=== PATIENT | female | born 1970 | race Caucasian/White ===

== ENCOUNTER → 2019-12-30 | Outpatient (CLI) | payer BC, SELFPAY ==
[2019-12-24 13:56] VITALS: BMI 24.1
[2019-12-30 10:37] VITALS: BMI 23.9
[2019-12-30 12:52] VITALS: PULSE 100; PULSE 102; PULSE 80; PULSE 86; PULSE 94; PULSE 98; O2SAT 93; O2SAT 95; O2SAT 96; O2SAT 97; O2SAT 98; O2SAT 99
--- NOTE | 2019-12-31 09:51 | PCM.PSN.6M ---
PSN 6 Minute Walk Test - 6 Minute Walk Test 6 Minute Walk Test: 6 Minute Walk Test PSN:6-Minute Walk Test Start: 12/30/19 12:51 Freq: Status: Active Protocol: RESP.6MINW Document 12/30/19 12:52 [facility] (Rec: 12/30/19 12:54 DULCE [id number]) 6 Minute Walk Test Date Performed 12/30/19 Time Performed 12:30 Height 5 ft 5 in Weight: 144 lb Weight in Pounds 144.[address]: Alexandru Shepherd Assistive device used: None Pre-test Oxygen Delivery Method Room Air Pulse Ox (%) 98 Pulse Rate (60-100 beats/min) 80 Dyspnea Asya Scale (0-10) 0.5 Exertion Asya Scale (6-20) 6 1st minute Oxygen Delivery Method Room Air Pulse Ox (%) 99 Pulse Rate (60-100 beats/min) 94 2nd minute Oxygen Delivery Method Room Air Pulse Ox (%) 98 Pulse Rate (60-100 beats/min) 98 3rd minute Oxygen Delivery Method Room Air Pulse Ox (%) 95 Pulse Rate (60-100 beats/min) 102 H 4th minute Oxygen Delivery Method Room Air Pulse Ox (%) 97 Pulse Rate (60-100 beats/min) 100 5th minute Oxygen Delivery Method Room Air Pulse Ox (%) 96 Pulse Rate (60-100 beats/min) 98 6th minute Oxygen Delivery Method Room Air Pulse Ox (%) 93 Pulse Rate (60-100 beats/min) 98 Dyspnea Asya Scale (0-10) 2 Exertion Asya Scale (6-20) 13 Post-test Oxygen Delivery Method Room Air Pulse Ox (%) 98 Pulse Rate (60-100 beats/min) 86 Full Laps Walked 20 Partial Lap, Number of Tiles Walked 0 Total Distance Walked (ft) 1180 - Interpretation Interpretation: The patient ambulated 1180 feet over the course of 6 minutes beginning on room air without assistive devices or breaks. Pretesting oxygen saturation was noted to be 98% on room air. With ambulation, the [place] oxygen saturation was 93%. This represents a significant exertional oxygen desaturation. - Recommendations Recommendations: There is no indication for the use of supplemental oxygen at this time. However, close interval follow-up is recommended, given the degree of oxygen desaturation noted during this study.
== END | disposition home or self-care (01) ==
PROVIDERS: PCP Internal Medicine; Referring Provider Internal Medicine Critical Care Medicine; Visit Provider Internal Medicine Critical Care Medicine
DX: J44.9 Chronic obstructive pulmonary disease, unspecified (principal)
CPT/HCPCS: 94618

== ENCOUNTER → 2020-01-03 | Outpatient (CLI) | payer BC, SELFPAY ==
[2019-12-30 10:37] VITALS: BMI 23.9
--- NOTE | 2020-01-03 13:48 | BI_ITS ---
MAMMOGRAPHY - BILATERAL SCREENING REASON FOR EXAM: Female, 49 years old. Routine annual screening examination. PERTINENT HISTORY: Personal history of breast cancer. Prior left lumpectomy. TECHNIQUE: Digital bilateral breast simin (3D mammographic acquisition) in the CC and MLO projections. 2-D mediolateral oblique (MLO) and craniocaudad (CC) views of both breasts were obtained. CAD: Full Field Digital Mammography with Computer Added Detection was performed. COMPARISON: Comparison is made with prior outside examination dated September 09, 2015. FINDINGS: Breast Composition: The breasts are heterogeneously dense, which may obscure small masses. There are no dominant masses or suspicious calcifications. Stable mild degree of architectural distortion in the deep upper lateral portion of the left breast representing post left lumpectomy findings. No other significant abnormalities are identified. There has been no significant change since the prior study. BI/SCREEN MAMM (CAD) W/SIMIN BILAT IMPRESSION: Stable bilateral screening mammogram. Yearly follow-up mammogram recommended. (A) ASSESSMENT CATEGORY: BIRADS Category 2: Benign. A letter regarding these results will be sent to the patient by the facility within 30 days. Approximately 10% of breast cancers are not detected by mammography. A normal mammogram should not delay biopsy of a clinically suspicious abnormality. [id number] Electronically Signed: Jaswinder Reyes, at 15:00 EDT , Service support ,
== END | disposition home or self-care (01) ==
LOC: OPBI 13:48
PROVIDERS: PCP Internal Medicine; Referring Provider Internal Medicine Hematology & Oncology; Visit Provider Internal Medicine Hematology & Oncology
DX: Z12.31 Encounter for screening mammogram for malignant neoplasm of breast (principal)
CPT/HCPCS: 77063; 77067

== ENCOUNTER 2020-09-28 14:50 | Emergency (ER) | payer BC, SELFPAY ==
[2020-09-15 12:19] VITALS: BMI 27.6
[2020-09-28 14:52] VITALS: BP 149/99; PULSE 91; RESP 18; TEMP 36.3; O2SAT 94; BMI 26.6
--- NOTE | 2020-09-28 15:16 | EKG12_ITS ---
Test Reason : Blood Pressure : / mmHG Vent. Rate : 071 BPM Atrial Rate : 071 BPM P-R Int : 182 ms QRS Dur : 096 ms QT Int : 404 ms P-R-T Axes : 086 083 081 degrees QTc Int : 439 ms Somatic/Motion Artifact Normal sinus rhythm \ Confirmed by ABDOUL YANEZ, MARILYNN ([id number]), material expeditor ESA BAXTER ([id number]) on 09/29/2020 10:47:52 AM Referred By: MARY Confirmed By:MARILYNN SCHREIBER MD
--- NOTE | 2020-09-28 15:19 | ED.VISSUMM ---
- ER Visit Summary Date of Service: 09/28/20 Chief Complaint: Myalgias History of Present Illness: The patient is a 50 F presenting with myalgias, not feeling well. Patient states this started on Monday. She states she started having congestion, sneezing, fatigue. Yesterday she lost her sense of taste and smell. She was tested for Covid yesterday and was positive. She has a history of end-stage COPD and discussed her symptoms with Dr. Shepherd. She states she was told she does not qualify for monoclonal antibody treatment. Her pulse ox has been in the mid 90s. She has home O2 available that she wears at night. She has shortness of breath which is chronic and no worse than usual. Physical Examination: Vitals are stable. Patient is afebrile. Alert no acute distress. HEENT exam is unremarkable. Neck is supple. Lungs are wheezing bilaterally. Heart is regular rate and rhythm. Abdomen is soft nontender nondistended. Extremities are unremarkable. Skin is warm and dry. No focal neurologic deficit. Remainder of exam is unremarkable. Emergency Department Course and Treatment: Patient was given albuterol, Atrovent aerosols. She was given IV fluids, Toradol. Chest x-ray shows emphysema without pneumonia or atelectasis. EKG is sinus rhythm rate of 71 with no acute ischemic changes. CBC shows white count 4.1. Chemistries unremarkable. Troponin is negative. D-dimer is normal. Patient is resting comfortably on reevaluation. With ambulation her pulse ox is 90% on room air. It does return to 94 to 95% on room air quickly when she sits down. She would prefer discharge home. Discussed with Dr. Garcia. Patient will be started on Decadron. She will follow-up closely with their office. She is advised signs and symptoms for which to return to the ED. She is comfortable with this plan. Disposition: Discharge home Impression: COVID-19 This note was generated with [employer] dictation software. It may contain incorrect words, spelling, and punctuation that were not noted in review of the chart prior to signing ED Disposition - Plan for ED Patient: Instructions: Coronavirus Disease 2019 (COVID-19): Overview Prescriptions: Dexamethasone [Decadron] 6 mg PO DAILY #9 tab Prescription Printed Referrals: Alexandru Shepherd DO [STAFF PHYSICIAN] - Haylie Ayon DO [Primary Care Provider] -
--- NOTE | 2020-09-28 15:26 | NURSING ---
NO OLD EKGS
[2020-09-28 15:43] VITALS: PULSE 88; RESP 20
[2020-09-28] MEDS: Ipratropium/Albuterol Sulfate 3 ML AMPUL.NEB INHALATION (15:43)
[2020-09-28] MEDS: Albuterol 2.5 MG/3 ML VIAL.NEB. INHALATION ×3 (15:43)
[2020-09-28 16:04] LABS: Absolute Lymphocyte Count 1.58 X10^3/uL (0.83-4.51); Absolute Neutrophil Count 2.2 X10^3/uL (2.0-7.7); Basophil# 0.01 X10^3/uL; Basophil% 0.2 % (0-1); Eosinophil# 0.04 X10^3/uL; Hematocrit 43.9 % (37-47); Hemoglobin 14.8 g/dL (12.0-15.0); Lymphocyte # 1.58 X10^3/ul (4.0); Lymphocyte % 38.3 % (19-41); Mean Corp Hgb Conc 33.7 g/dL (32-36); Mean Corpuscular Hgb 34.2 pg (27.0-32.0); Mean Corpuscular Volume 101.4 fL (81-99); Mean Platelet Vol. 9.4 fl (6.2-12.0); Monocyte# 0.31 X10^3/uL; Monocyte% 7.5 % (0-10); NRBC Flagged by Analyzer 0 % (0-5); Neutrophil # 2.18 X10^3/uL (2.7-7.7); Platelet Count 165 K/mm3 (150-450); RBC Distribution Width CV 14.5 % (11.6-14.6); RBC Distribution Width SD 50.3 fl (35.1-43.9); Red Blood Count 4.33 M/mm3 (4.2-5.4); White Blood Count 4.1 K/mm3 (4.4-11.0)
[2020-09-28] MEDS: 0.9% Normal Saline 1,000 ML 1000 ML IV (16:04)
[2020-09-28] MEDS: Ketorolac 15 MG/ML Vial IV (16:05)
[2020-09-28 16:14] LABS: D-Dimer Quantitative (DVT/PE) 0.29 FEU/ug/m (0.27-0.49)
[2020-09-28 16:18] VITALS: O2SAT 95
[2020-09-28 16:21] LABS: AST(SGOT) 38 U/L (15-37); Alanine Aminotransfer ALT/SGPT 34 U/L (13-56); Albumin, Serum 3.8 g/dL (3.2-5.0); Alkaline Phosphatase 60 U/L (45-117); Anion Gap 6 (5-15); BUN 10 mg/dL (7-18); BUN/Creat Ratio 15.8 RATIO (10-20); Calcium,Total 8.6 mg/dL (8.5-10.1); Chloride 108 mmol/L (98-107); Creatinine, Serum 0.63 mg/dL (0.55-1.02); EST Glomerular Filtration Rate 106 mL/min (>60); Est Glom Filt Rate - Afr Amer 128 mL/min (>60); Estimated Creatinine Clearance 96.13 ml/min; Globulin 3.8 g/dL (2.2-4.2); Glucose 76 mg/dL (74-106); Potassium 3.9 mmol/L (3.5-5.1); Protein, Total 7.6 g/dL (6.4-8.2); Sodium Level 141 mmol/L (136-145)
--- NOTE | 2020-09-28 16:25 | RAD_ITS ---
STUDY: X-RAY CHEST REASON FOR EXAM: Female, 50 years old. cough TECHNIQUE: Single AP portable view of the chest. COMPARISON: 11/11/2019 FINDINGS: There is hyperinflation of the lungs consistent with chronic obstructive lung disease (COPD). There is no demonstrated pleural abnormality. Normal size heart. Normal mediastinum and andrew. Normal visualized pulmonary arteries. Normal visualized aortic arch and descending thoracic aorta. Normal visualized thoracic spine. Normal visualized ribs, clavicles, and shoulders. There is no demonstrated abnormality of the visualized soft tissue structures of the upper abdomen. RAD/Chest 1 View (Portable) IMPRESSION: Emphysema without pneumonia or atelectasis. Electronically Signed: Tanvir Jean MD at 16:44 EST Tel , Service support ,
[2020-09-28 17:02] VITALS: PULSE 105; RESP 18; O2SAT 98
[2020-09-28 17:04] VITALS: O2SAT 96
--- NOTE | 2020-09-28 17:55 | ED.DEP ---
ED Disposition - Plan for ED Patient: Instructions: Coronavirus Disease 2019 (COVID-19): Overview Prescriptions: Dexamethasone [Decadron] 6 mg PO DAILY #9 tab Prescription Printed Referrals: Haylie Ayon DO [Primary Care Provider] - Alexandru Shepherd DO [STAFF PHYSICIAN] -
[2020-09-28 18:15] VITALS: BP 125/81; PULSE 88; RESP 18; O2SAT 96
[2020-09-28] MEDS: dexAMETHasone 4 MG Tablet 6 MG PO (18:15)
== END 2020-09-28 18:27 | disposition home or self-care (01) ==
LOC: ED 15:48
PROVIDERS: Emergency Provider Emergency Medicine; PCP Internal Medicine
DX: U07.1 COVID-19 (principal); J44.9 Chronic obstructive pulmonary disease, unspecified; Z79.51 Long term (current) use of inhaled steroids
CPT/HCPCS: 71045; 80053; 84484; 85025; 85379; 93005; 94640; 96361; 96374; 99285; J7030; A4216

== ENCOUNTER → 2020-11-12 13:37 | Outpatient (CLI) | payer BC, SELFPAY ==
[2020-09-15 12:19] VITALS: BMI 27.6
[2020-11-12 14:03] VITALS: PULSE 102; PULSE 111; PULSE 114; PULSE 115; PULSE 116; PULSE 94; PULSE 95; PULSE 98; O2SAT 90; O2SAT 91; O2SAT 92; O2SAT 96; O2SAT 97
--- NOTE | 2020-11-13 13:53 | PCM.PSN.6M ---
PSN 6 Minute Walk Test - 6 Minute Walk Test 6 Minute Walk Test: 6 Minute Walk Test PSN:6-Minute Walk Test Start: 11/12/20 14:03 Freq: Status: Active Protocol: RESP.6MINW Document 11/12/20 14:03 [facility] (Rec: 11/12/20 14:06 [facility] [id number]) 6 Minute Walk Test Date Performed 11/12/20 Time Performed 13:45 Height 5 ft 5 in Weight: 72.575 kg Weight in Pounds 160.[address]: Dr Shepherd Assistive device used: None Pre-test Oxygen Delivery Method Room Air Pulse Ox (%) 97 Pulse Rate (60-100 beats/min) 94 Dyspnea Asya Scale (0-10) 1 Exertion Asya Scale (6-20) 6 1st minute Oxygen Delivery Method Room Air Pulse Ox (%) 96 Pulse Rate (60-100 beats/min) 95 2nd minute Oxygen Delivery Method Room Air Pulse Ox (%) 92 Pulse Rate (60-100 beats/min) 102 H 3rd minute Oxygen Delivery Method Room Air Pulse Ox (%) 91 Pulse Rate (60-100 beats/min) 111 H 4th minute Oxygen Delivery Method Room Air Pulse Ox (%) 90 Pulse Rate (60-100 beats/min) 114 H 5th minute Oxygen Delivery Method Room Air Pulse Ox (%) 90 Pulse Rate (60-100 beats/min) 115 H 6th minute Oxygen Delivery Method Room Air Pulse Ox (%) 91 Pulse Rate (60-100 beats/min) 116 H Dyspnea Asya Scale (0-10) 3 Exertion Asya Scale (6-20) 12 Post-test Oxygen Delivery Method Room Air Pulse Ox (%) 97 Pulse Rate (60-100 beats/min) 98 Full Laps Walked 19 Partial Lap, Number of Tiles Walked 36 Total Distance Walked (ft) 1157 - Interpretation Interpretation: The patient was noted to be 97% on room air, but did desaturate as low as 90% with ambulation. Patient did have a peak heart rate of 116 bpm. In total, the patient was able to travel 1157 feet over the course of 6 minutes on room air with no assistive device or breaks. These findings are consistent with a respiratory limitation exercise tolerance. - Recommendations Recommendations: No supplemental oxygen is indicated at this time. However, patient will need to be followed closely given level of desaturation.
== END ==
PROVIDERS: PCP Internal Medicine; Referring Provider Internal Medicine Critical Care Medicine; Visit Provider Internal Medicine Critical Care Medicine
DX: J44.9 Chronic obstructive pulmonary disease, unspecified (principal)
CPT/HCPCS: 94618

== ENCOUNTER → 2021-01-04 10:21 | Outpatient (CLI) | payer MEDICAID, SELFPAY ==
--- NOTE | 2021-01-04 10:24 | BI_ITS ---
MAMMOGRAPHY - BILATERAL SCREENING REASON FOR EXAM: Female, 50 years old. Routine annual screening examination. PERTINENT HISTORY: Personal history of breast cancer. Prior left lumpectomy with radiation treatment. TECHNIQUE: Digital bilateral breast simin (3D mammographic acquisition) in the CC and MLO projections. 2-D mediolateral oblique (MLO) and craniocaudad (CC) views of both breasts were obtained. CAD: Full Field Digital Mammography with Computer Added Detection was performed. COMPARISON: Comparison is made with prior examination dated 01/03/2020. FINDINGS: Breast Composition: The breasts are heterogeneously dense, which may obscure small masses. There are no dominant masses or suspicious calcifications. Stable mild degree of architectural distortion in the deep upper lateral portion of the left breast in keeping with the patient''s history of prior left lumpectomy and radiation. No other significant abnormalities are identified. There has been no significant change since the prior study. BI/SCRN MAMM (CAD)W/SIMIN BILAT IMPRESSION: Stable bilateral screening mammogram. Yearly follow-up mammogram recommended. (A) ASSESSMENT CATEGORY: BIRADS Category 2: Benign. A letter regarding these results will be sent to the patient by the facility within 30 days. Approximately 10% of breast cancers are not detected by mammography. A normal mammogram should not delay biopsy of a clinically suspicious abnormality. [id number] Electronically Signed: Jaswinder Reyes MD at 11:13 EDT , Service support ,
== END ==
PROVIDERS: PCP Internal Medicine; Referring Provider Internal Medicine Hematology & Oncology; Visit Provider Internal Medicine Hematology & Oncology
DX: Z12.31 Encounter for screening mammogram for malignant neoplasm of breast (principal)
CPT/HCPCS: 77063; 77067

== ENCOUNTER 2021-08-11 10:06 | Outpatient (CLI) | payer MEDICAID, SELFPAY ==
--- NOTE | 2021-08-11 10:30 | PET_ITS ---
EXAMINATION: FDG PET-CT INDICATIONS: A 51-year-old female with reported history of pulmonary nodularity. COMPARISON EXAMINATION: None available INDEX LESION SIZE SUV INTERPRETATION Right lower lung-right lower lobe (nR6) 28.6-mm (largest) (frame 160) 9.7 (max) Fulfills quantitative criteria for viable neoplasm Subcarinal anterior mediastinum (nR3) 17.5-mm (largest) (frame 187) 14.1 (max) Fulfills quantitative criteria for viable neoplasm TECHNIQUE: Following the intravenous administration of 11.89 mCi of F-18 deoxyglucose via the right antecubital fossa, multiplanar image acquisitions of the neck, chest, abdomen and pelvis to level of mid thigh, obtained at one hour post radiopharmaceutical administration contemporaneously interpreted with the current CT of the neck, chest, abdomen and pelvis, to level of mid thigh, dated 08/11/21 via coregistration reveals: BLOOD GLUCOSE LEVEL:?? 92 mg/dl?HEIGHT:?65 inches?WEIGHT: 159 lbs. FINDINGS: 1. Several nodular foci of increased FDG concentration are manifest in the right lower lung-right lower lobe corresponding to partially calcified densities defined on CT of the chest dated 08/11/21. The calculated maximal standard uptake value is 9.7. The maximal axial diameter of the largest corresponding parenchymal density on review of CT of the chest dated 08/11/21 is 28.6-mm localized to the right lower post-basilar lung-right lower lobe. 2. Enhanced labeled tracer is defined in the subcarinal anterior mediastinum in several individual nodular presentations associated with partially calcified soft tissue. The calculated maximal standard uptake value is 14.1. The maximal axial diameter of the corresponding largest metabolic, morphologic abnormality on review of CT of the chest dated 08/11/21 is 17.5-mm (transverse). 3. Normal physiologic distribution of the radiopharmaceutical is apparent in the hepatic (3.2) and splenic parenchyma, both renal units, bladder and visualized intestinal tract. Prominent radiopharmaceutical concentration is defined in the anterior neck, laryngeal structures associated with the arytenoid cartilage and cricopharyngeus musculature without evidence of soft tissue thickening most consistent with physiologic radiotracer uptake. The visualized portion of the cerebral cortical-subcortical structures demonstrate symmetric and preserved glucose metabolism. Diffuse radiopharmaceutical concentration is noted in all four quadrants of the abdomen and pelvis. There is pooling of the radiopharmaceutical noted in the distribution of the urethra. Pertinent CT findings are as follows: CHEST: Significant emphysematous changes are encountered in the bilateral upper-lower lung zones with multiple bulla visualized. There is atherosclerotic calcification defined in the thoracic aorta without evidence of dilatation-aneurysm formation. Bilateral axillary soft tissue densities with fatty hilus are ametabolic. ABDOMEN AND PELVIS: The gallbladder is surgically absent. There is atherosclerotic calcification defined in the abdominal aorta without evidence of dilatation-aneurysm formation. Pelvic arterial calcification is defined. Calcification is manifest in the lower pelvis associated with the uterus without evidence of increased tracer uptake. Cyst formation is noted in the region of the right adnexa without evidence of facilitated uptake. SKELETAL: Degenerative changes are noted in the cervical, thoracic and lumbar spine without evidence of increased radiopharmaceutical concentration. PET/PET/CT Tumor Base -Thigh Init IMPRESSION: 1. ABNORMAL EXAMINATION INDICATIVE OF MALIGNANT VIABLE NEOPLASM. 2. Increased glucose concentration multifocally apparent in the right lung-right lower lobe fulfill quantitative criteria for malignant transformation. Histopathologic analysis is recommended. (Hamilton et al, Annals of Internal Medicine, 138:724, 2003). 3. Subcarinal anterior mediastinal hypermetabolic foci fulfill quantitative criteria for malignant transformation. (Khurram et al, Journal of Clinical Oncology 16:2142, 1998). Electronic Signature Tanvir Melgar D.O. Accurate Quantification of SUVs for this report are calculated using the exclusive [employer]. (U.S. Patent No. 10, 674, 983). Standardization and correction of the FDG SUV metric via [employer] technology allow for vendor non-specific objective quantitative examination comparison and optimization of the sensitivity and specificity of the FDG PET-CT examination. Electronically Signed: Tanvir Melgar DO at 7:44 EST Tel , Service support ,
== END 2021-08-11 23:59 | disposition home or self-care (01) ==
LOC: ONC 10:07
PROVIDERS: PCP Internal Medicine; Referring Provider Internal Medicine Critical Care Medicine; Visit Provider Internal Medicine Critical Care Medicine
DX: R91.1 Solitary pulmonary nodule (principal)
CPT/HCPCS: 78815; A9552

== ENCOUNTER 2021-08-18 10:49 | Outpatient (CLI) | payer MEDICAID, SELFPAY ==
[2021-08-18 11:14] LABS: Platelet Count 261 K/mm3 (150-450)
[2021-08-18 11:23] LABS: International Normalized Ratio 0.9; Prothrombin Time (Protime)PT. 11.9 SECONDS (11.7-14.9)
== END 2021-08-18 23:59 | disposition short-term general hospital (02) ==
LOC: PAVLAB 10:50
PROVIDERS: PCP Internal Medicine; Referring Provider Internal Medicine Critical Care Medicine; Visit Provider Internal Medicine Critical Care Medicine
DX: R91.1 Solitary pulmonary nodule (principal)
CPT/HCPCS: 36415; 85049; 85610

== ENCOUNTER 2021-08-19 08:01 | Outpatient (CLI) | payer MEDICAID, SELFPAY ==
--- NOTE | 2021-08-18 | ASPIGT_PTH ---
PATIENT: FERNANDO LANDRY LOC: CT U#:[id number] AGE/SX: 51/F ROOM: RE08/19/[address]: Dr. Alexandru Shepherd DO : 1970 BED: DIS: 08/19/2021 SPEC #: [id number] RECD: 08/19/21 12:35 STATUS: OSCAR REMorteza #: [id number] DREW: 08/18/21 00:[address]: Alexandru Shepherd DEPT: SURGICAL PATHOLOGY RECD BY: Casey Gomez ENTERED: 08/19/21 12:35 SP TYPE: ASP RAD OTHR DR: Dr. Haylie Ayon DO Tissues: Lung, NOS Procedures: FNA Specimen Adequacy Special Stain Group II Special Stain Group I Surgery Specimen Level IV AFB Stain (control) GMS Stain (control) Imprint (control) HEADER OPERATION: CT-guided biopsy, right lower lobe lung PRE-OP DIAGNOSIS: Lung nodule, abnormal PET TISSUE SUBMITTED: Right lower lobe lung 20-gauge core x4 MICROSCOPIC DIAGNOSIS Right lower lobe lung, CT-guided core biopsy: Fragments of dense fibroconnective tissue with extensive foreign body giant cell reaction. Focal area of granuloma formation. Negative for malignancy. See comment. SJ:jimi 08/20/2021 COMMENT The specimen is evaluated at the time of biopsy by Dr. Bailey. Immediate Evaluation = Negative for malignant cells. Giant cells are noted. Numerous refractile polarizable material are noted in the giant cells. Scant amount of lung parenchymal tissue is noted with reactive changes and chronic inflammation. Correlation with clinical, radiologic findings and appropriate follow up are necessary. Special stains for acid fast bacilli and fungi are negative for organisms; matched controls are appropriate. Case has been reviewed in consultation with Dr. Rosa who concurs with the above diagnosis. IDC:AM MICROSCOPIC DESCRIPTION Slides are reviewed. GROSS DESCRIPTION Received in fixative is one container labeled with the patient's name and designated right lower lobe, CT-guided core biopsy. The specimen consists of multiple irregular fragments of miranda soft tissue that in aggregate measure 1 x 0.1 x 0.1 cm. The specimen is totally submitted in one cassette. Two touch imprints are prepared at the time of core biopsy. / SJ:rg 08/19/2021 :5 [facility]: [id number], [id number], [id number] x2 ADDENDUM ADDENDUM ADDENDUM ADDENDUM ADDENDUM ADDENDUM ADDENDUM ADDENDUM ADDENDUM ADDENDUM ADDENDUM 07/12/2023 10:01 ADDENDUM 07/12/2023 10:01 ADDENDUM 07/12/2023 10:01 ADDENDUM 07/12/2023 10:01 ADDENDUM 07/12/2023 10:01 This addendum is added to incorporate an outside pathology consultation report. The case was examined at [facility] (#[id number]) and the following diagnosis was rendered. Right lower lobe lung, CT-guided core biopsy: Cores of benign hyalinized fibrous tissue with talc granulomas. History of pleurodesis for pneumothorax. Please see complete above mentioned consultation report in EMR
[2021-08-19] VITALS (12 sets, daily range): BP systolic 103–128; BP diastolic 59–84; PULSE 63–96; RESP 13–24; TEMP 36.2; O2SAT 94–100; BMI 26.9
--- NOTE | 2021-08-19 08:03 | CT_ITS ---
PROCEDURE: CT GUIDED CORE NEEDLE BIOPSY OF A right lower lobe LUNG LESION INDICATION: Female, 51 years old. PET + Lung Nodule PHYSICIAN: Dr. PATSY Orr CONSENT: Written informed consent was obtained having explained the risks, benefits and alternatives in detail with the patient who accepted the risks and agreed to proceed. Laboratory review and clinical assessment was performed. CONSCIOUS SEDATION PROTOCOL: The Drugs used were: 2 mg Versed, IV., and 50 mcg Fentanyl, IV. The sedation time was: 23 minutes. Conscious sedation was started at 9:00 AM and terminated at 923 The conscious sedation protocol was independently monitored. RADIATION DOSAGE (If Supplied By Facility): CTDIvol = ( 22 ) mGy, DLP = ( 280.1 ) mGycm Individualized dose optimization techniques were used for this CT. TECHNIQUE: The patient was placed in the prone position. A noncontrast CT was performed to localize the lesion in the posterior medial segment of the right lower lobe . The skin surface was prepped and draped in a sterile fashion. 1% lidocaine was used for local anesthesia. Using CT guidance, a 20-gauge coaxial biopsy device was advanced to the periphery of the lesion. A total of 4 core specimens were obtained. The specimens were placed in a formalin solution. A post procedure CT demonstrated no adverse sequelae or pneumothorax. The patient tolerated the procedure well without adverse event. A negative biopsy does not exclude malignancy. Further imaging or clinical followup based on patient condition and degree of clinical suspicion for malignancy. Suggest rebiopsy, if biopsy results do not match with clinical scenario. CT/Biopsy/Inj or Needle Placement IMPRESSION: 1. CT directed core needle biopsy of the nodule in the posterior segment of the right lower lobe using CT image guidance with image documentation as described. Pathology results are pending. 2. Conscious Sedation protocol utilized with independent monitoring. Electronically Signed: Jaswinder Reyes MD at 9:58 EST , Service support ,
[2021-08-19] MEDS: Midazolam 2 MG/2 ML Syringe IV (09:00)
[2021-08-19] MEDS: fentaNYL 100 MCG/2 ML Ampul IV (09:03)
[2021-08-19] MEDS: Lidocaine 2% (20 ml mdv) 20 ML Vial INFILT (09:10)
--- NOTE | 2021-08-19 09:30 | RAD_ITS ---
STUDY: X-RAY CHEST REASON FOR EXAM: Female, 51 years old. Immediately post lung biopsy -- Immediately post lung biopsy TECHNIQUE: AP inspiration and expiration views COMPARISON: Comparison is made with prior study 09/28/2020. FINDINGS: EKG electrodes are seen. There is no evidence of pneumothorax on the immediate post right lung biopsy radiographs. RAD/Chest Insp/Exp 2 View IMPRESSION: No evidence of pneumothorax on the immediate post right lung biopsy radiographs. Electronically Signed: Jaswinder Reyes MD at 9:55 EST , Service support ,
--- NOTE | 2021-08-19 11:15 | RAD_ITS ---
STUDY: X-RAY CHEST REASON FOR EXAM: Female, 51 years old. 2 hours post lung biopsy -- 2 hours post lung biopsy TECHNIQUE: AP inspiration and expiration views. COMPARISON: Comparison is made with prior study done earlier in the day. FINDINGS: No evidence of pneumothorax on the 2 hour post right lung biopsy radiographs. RAD/Chest Insp/Exp 2 View IMPRESSION: No evidence of pneumothorax on the 2 hour post right lung biopsy radiographs. Electronically Signed: Jaswinder Reyes MD at 13:01 EST , Service support ,
== END 2021-08-19 23:59 | disposition home or self-care (01) ==
LOC: CT 08:02
PROVIDERS: PCP Internal Medicine; Referring Provider Internal Medicine Critical Care Medicine; Visit Provider Internal Medicine Critical Care Medicine
DX: R91.1 Solitary pulmonary nodule (principal); J44.9 Chronic obstructive pulmonary disease, unspecified; Z85.3 Personal history of malignant neoplasm of breast; Z87.442 Personal history of urinary calculi; Z85.07 Personal history of malignant neoplasm of pancreas; Z87.891 Personal history of nicotine dependence
CPT/HCPCS: 32408; 77012; 71046; 88172; 88305; 88312; 88313; 99156; J7040; A4216; C2613

== ENCOUNTER → 2021-11-23 | Outpatient (CLI) | payer MEDICAID, SELFPAY ==
--- NOTE | 2021-11-23 13:25 | CT_ITS ---
STUDY: CT CHEST REASON FOR EXAM: Female, 51 years old. Follow known nodules RADIATION DOSAGE (If Supplied By Facility): CTDIvol = ( 9.40 ) mGy, DLP = ( 216.64 ) mGycm TECHNIQUE: The examination was performed with the intravenous administration of IV 100mL [id number]-300. Post-processing of the angiographic images was performed, with multiplanar reformation and 3D reconstruction. Individualized dose optimization techniques were used for this CT. COMPARISON: None. FINDINGS: Small bilateral axillary lymph nodes. Normal thoracic aorta and visualized great vessels. There is no demonstrated aortic dissection. Normal heart and pericardium. Calcified nodule in the anterior mediastinum. Calcified subcarinal lymph nodes. Normal hilar regions. Normal visualized trachea and bronchi. The lungs are hyper expanded, with flattening of the hemidiaphragms. Diffuse emphysematous changes with multiple bullous changes seen in both lungs. There is a 9.2 mm x 18.9 mm pleural-based nodular density in the posterior medial segment of the right lower lobe. This most likely represents round atelectasis. Patchy calcific densities are seen within this nodular density. There are 2 adjacent subcentimeter noncalcified nodules in the peripheral lateral aspect of the right lower lobe. Normal pleura. Normal chest wall structures. There are degenerative changes of thoracic spine. Normal visualized upper abdomen. CT/Chest WITH Contrast IMPRESSION: Calcified anterior mediastinal lymph nodes as well as subcarinal lymph nodes. Diffuse hyperinflation and emphysematous changes. Findings suggestive of a round atelectasis in the posterior medial segment of the right lower lobe. Electronically Signed: Jaswinder Reyes MD at 13:43 EDT ,
== END | disposition home or self-care (01) ==
LOC: CT 13:22
PROVIDERS: PCP Internal Medicine; Visit Provider Nurse Practitioner Acute Care
DX: R91.1 Solitary pulmonary nodule (principal)
CPT/HCPCS: 71260; Q9967; A4216

== ENCOUNTER → 2022-02-24 | Outpatient (CLI) | payer MEDICAID, SELFPAY ==
--- NOTE | 2022-02-24 14:52 | CT_ITS ---
INDICATION: Lung Nodule EXAMINATION: CT CHEST WITHOUT CONTRAST - CT Chest W/O Contrast Injection TECHNIQUE: Helically acquired images were obtained of the chest. A radiation dose optimization technique was used for this scan. IV Contrast dosage and agent: None. COMPARISON: 11/23/2021 CT chest, 08/11/2021 PET/CT FINDINGS: LUNGS, PLEURA AND LARGE AIRWAYS: No consolidation, or edema. No pleural effusion or thickening. No pneumothorax. Extensive emphysematous COPD changes and bullous changes throughout the bilateral lungs is present. There is a similar fibrotic calcified change along the right lower lobe posterior pleura measuring 2.1 cm in similar in comparison to the previous one 1222 exam. There is a calcified right lower mediastinal nodule measuring 1.5 cm with the more superior irregular partially calcified additional nodule measuring 2.5 x 1.8 cm in similar compared to the 11/23/2021 exam. Small stable pleural nodule within the posterior aspect of the right lower lobe is also noted measuring 9 mm at the base. THYROID: No thyroid lesions. HEART AND PERICARDIUM: Heart size is normal. No pericardial effusion. CORONARY ARTERIES: Coronary artery calcification VESSELS: Thoracic aorta is not dilated. MEDIASTINUM AND BHUPINDER: No mediastinal or hilar adenopathy. Esophagus is unremarkable. No hiatal hernia. UPPER ABDOMEN: No acute pathology. BONES: No suspicious lytic or blastic abnormality. CT/Chest without Contrast IMPRESSION: 1. Extensive similar COPD and bullous changes of the bilateral lungs. 2. Similar-appearing pleural-based irregular nodules in the right lower lobe which demonstrated increased metabolic activity on recent PET/CT on 08/11/2021. Clinically correlate for tissue sampling. 3. Similar size and configuration of the right lower mediastinal irregular calcified soft tissue nodules which also demonstrated previous increased metabolic activity. Clinically correlate for tissue sampling. Electronically Signed: Constantino Cates DO at 13:54 EDT ,
== END | disposition home or self-care (01) ==
LOC: CT 14:47
PROVIDERS: PCP Internal Medicine; Referring Provider Internal Medicine Critical Care Medicine; Visit Provider Internal Medicine Critical Care Medicine
DX: R91.1 Solitary pulmonary nodule (principal)
CPT/HCPCS: 71250

== ENCOUNTER → 2022-06-01 | Outpatient (CLI) | payer MEDICARE, MEDICAID, SELFPAY ==
--- NOTE | 2022-06-01 09:00 | PET_ITS ---
EXAMINATION: FDG PET-CT INDICATIONS: A 51-year-old female with a history of primary breast carcinoma presenting for restaging examination. COMPARISON EXAMINATION: FDG PET CT study dated 08/11/21. INDEX LESION SIZE SUV INTERPRETATION PERSISTENT: Right lower lung, right lower lobe 13.4 mm comp to 15.6 mm, 08/01/21 6.3 max comp to 8.6, 08/01/21 Fulfills quantitative criteria for viable neoplasm, interim metabolic improvement-quantitative partial metabolic response in the appropriate clinical context. PERSISTENT: Posterior mediastinum 14.2 mm comp to 33.5 mm 10.5 comp to 12.3, 08/11/21 Fulfills quantitative criteria for viable neoplasm, interim metabolic improvement-quantitative partial metabolic response in the appropriate clinical context-tumor diameter SUV index. PERSISTENT: Anterior mediastinum 16.3 mm comp to 18.5 mm 11.1 comp to 14.1, 08/01/21 Fulfills quantitative criteria for viable neoplasm, interim metabolic improvement-quantitative partial metabolic response in the appropriate clinical context. TECHNIQUE: Following the intravenous administration of 10.72 mCi of F-18 deoxyglucose via the right antecubital fossa, multiplanar image acquisitions of the head, neck, chest, abdomen and pelvis to level of mid-thigh, lower extremities obtained at one hour post radiopharmaceutical administration contemporaneously interpreted with the current CT of the head, neck, chest, abdomen and pelvis to level of mid-thigh, lower extremities dated 06/01/22 via coregistration and FDG PET CT study dated 08/11/21 reveal: SERUM GLUCOSE LEVEL: 98 mg/dl. HEIGHT: inches. WEIGHT: lbs. FINDINGS: Head/Neck: There is no evidence of abnormal increased glucose metabolism in the pharyngeal mucosal space, parapharyngeal space, bilateral-lateral and anterior neck, hypopharynx and distribution of the laryngeal structures. The visualized portion of the cerebral cortical-subcortical structures demonstrate symmetric and preserved glucose metabolism. CHEST: Increased labeled glucose distribution remains apparent in several nodular presentations in the right lower lung field, right lower lobe corresponding to partially calcified soft tissue densities on review of CT of the chest dated 06/01/22. The current calculated maximum standard uptake value is 10.5 compared to 12.3 defined on the previous examination. The maximum axial diameter of the metabolic, morphologic abnormality is 14.2 mm compared to 33.5 mm. An increase in FDG concentration is redemonstrated in the anterior mediastinum in 3 separate locations with a current calculated maximum standard uptake value of 11.1 compared to 14.1 defined o the FDG PET CT study dated 08/11/21. The maximum axial diameter of the metabolic, morphologic abnormality is 16.3 mm compared to 18.5 mm. Otherwise the previously defined morphologic-anatomic changes described on the prior FDG PET-CT report dated 08/11/21, are essentially unchanged on the current examination. Abdomen/Pelvis: Normal physiologic distribution of the radiopharmaceutical is apparent in the hepatic (2.8/3.2) and splenic parenchyma, both renal units, bladder and visualized intestinal tract. Diffuse radiopharmaceutical concentration is noted in all four quadrants of the abdomen and pelvis. The prior defined morphologic-anatomic changes described on the prior FDG PET-CT report dated 08/11/21, are essentially unchanged on the current examination. Skeletal: Degenerative changes are noted in the cervical, thoracic and lumbar spine. There is no visualized sclerotic-lytic changes manifest on review of the appendicular-axial skeletal structures. PET/PET/CT Tumor Base -Thigh Init IMPRESSION: 1. ABNORMAL EXAMINATION INDICATIVE OF MALIGNANT-VIABLE NEOPLASM. 2. Persistent increased radiopharmaceutical concentration remaining apparent in several locations within the right lower hemithorax pulmonary parenchyma, right lower lobe continues to fulfill quantitative criteria for viable neoplasm. 3. Enhanced FDG uptake remaining apparent in the posterior and anterior mediastinum corresponding to a multifocal increase in tracer uptake fulfills quantitative criteria for viable neoplasm. 4. Overall, compared to the prior FDG PET CT study dated 08/11/21, there is persistent viable neoplasm noted in the right lower lung martinez, right lower lobe, the posterior and anterior mediastinum in several different nodular presentations demonstrating interval decrease in quantitative degree of uptake and/or tumor diameter, SUV index consistent with an interim quantitative partial metabolic response in the appropriate clinical context. Electronic Signature Tanvir Melgar D.O. Accurate Quantification of SUVs for this report are calculated using the exclusive [employer]. (U.S. Patent No. [id number] [phone]). Standardization and correction of the FDG SUV metric via [employer] technology allow for vendor non-specific objective quantitative examination comparison and optimization of the sensitivity and specificity of the FDG PET-CT examination. Electronically Signed: Tanvir Melgar, at 7:03 EDT ,
== END | disposition home or self-care (01) ==
PROVIDERS: PCP Internal Medicine; Referring Provider Nurse Practitioner Acute Care; Visit Provider Nurse Practitioner Acute Care
DX: R91.8 Other nonspecific abnormal finding of lung field (principal); R59.0 Localized enlarged lymph nodes
CPT/HCPCS: 78815; A9552

== ENCOUNTER 2022-09-12 11:07 | Outpatient (CLI) | payer MEDICARE, MEDICAID, SELFPAY ==
--- NOTE | 2022-09-12 11:20 | RAD_ITS ---
INDICATION: COPD Exacerbation EXAMINATION/TECHNIQUE: X-RAY - XR Chest 2 Views COMPARISON: August 19, 2021. FINDINGS: LINES/DEVICES: None. LUNGS: Hyperaeration with emphysematous changes. No consolidation, edema or effusion. No pneumothorax. MEDIASTINUM AND CARDIOVASCULAR STRUCTURES: Cardiac silhouette not enlarged. Central airways and mediastinal contour are unremarkable. BONES AND SOFT TISSUES: Degenerative vertebral changes. RAD/Chest PA and Lateral IMPRESSION: Hyperaeration with emphysematous changes. Electronically Signed: Jesus Herbert DO at 23:57 EST ,
== END 2022-09-12 23:59 | disposition home or self-care (01) ==
LOC: PSN 11:08
PROVIDERS: PCP Internal Medicine; Visit Provider Internal Medicine Critical Care Medicine
DX: J44.9 Chronic obstructive pulmonary disease, unspecified (principal)
CPT/HCPCS: 71046; 87633

== ENCOUNTER → 2022-12-29 | Outpatient (CLI) | payer MEDICARE, MEDICAID, SELFPAY ==
--- NOTE | 2022-12-29 14:43 | CT_ITS ---
ACR Level 3 findings have been noted. An addendum which confirms receipt of the report will follow. EXAM: CT CHEST WITHOUT INTRAVENOUS CONTRAST CLINICAL INDICATION: Lung Nodule TECHNIQUE: Helically acquired images were obtained of the chest without intravenous contrast. This CT exam was performed using one or more of the following dose reduction techniques: automated exposure control, adjustment of the mA and/or kV according to patient size, and/or use of iterative reconstruction technique. RADIATION DOSE: CTDIvol = 7.18 mGy, DLP = 263.78 mGy-cm COMPARISON: CT scans of the chest 02/16/2022 and 11/23/2021. FINDINGS: LUNGS AND PLEURAL SPACES: Severe bullous emphysema bilaterally not significantly changed. Mild increased size in the partially calcified nodule right lower lung abutting the pleura posteriorly. On the current exam it measures 2 x 1.7 cm transverse dimension. On the prior exam 02/24/2022 and measured 1.9 x 1.3 cm transverse dimension. On the prior examination dated 11/23/2021 it measured 1.5 x 0.9 cm. Small pleural-based nodule right lower lobe adjacent to the ninth rib posterior medially unchanged since previous exam. No pneumothorax. HEART: Unremarkable. Heart size is normal. No pericardial effusion. No significant coronary artery calcifications. MEDIASTINUM: Unremarkable. No mediastinal or hilar adenopathy. Esophagus is unremarkable. No hiatal hernia. No change calcified anterior and posterior mediastinal masses. THYROID: Unremarkable. No thyroid lesions. BONES/JOINTS: Unremarkable. No suspicious lytic or blastic abnormality. VASCULATURE: Unremarkable. Thoracic aorta is non-dilated. CT/Chest without Contrast IMPRESSION: 1. Increasing size of the irregular partially calcified right lower lobe nodule that abuts the pleura in the right lung base. Recommend surgical consultation. 2. No change calcified anterior and posterior mediastinal masses. 3. Severe bullous emphysema bilaterally not significantly changed. 4. Small pleural-based nodule right lower lobe adjacent to the ninth rib posterior medially unchanged since previous exam. Electronically Signed: Antolin Mauricio MD at 0:57 EDT ,
== END | disposition home or self-care (01) ==
LOC: CT 14:42
PROVIDERS: PCP Internal Medicine; Referring Provider Internal Medicine Critical Care Medicine; Visit Provider Internal Medicine Critical Care Medicine
DX: R91.1 Solitary pulmonary nodule (principal)
CPT/HCPCS: 71250

== ENCOUNTER → 2023-04-18 | Outpatient (CLI) | payer MEDICARE, MEDICAID, SELFPAY ==
--- NOTE | 2023-04-18 10:00 | PET_ITS ---
EXAMINATION: FDG PET-CT INDICATIONS: A 52-year-old female with history of pulmonary nodularity and primary breast carcinoma presenting for restaging examination. COMPARISON EXAMINATION: FDG PET-CT study dated 06/01/22 INDEX LESION SIZE SUV INTERPRETATION PERSISTENT: Right lower lung field, right lower lobe 16.1-mm comp to 13.4-mm (06/01/22) 9.0 comp to 6.3 (06/01/22) Fulfills quantitative criteria for viable neoplasm, interim metabolic progression PERSISTENT: anterior mediastinum 17.3-mm comp to 16.3-mm (06/01/22) 14.9 comp to 11.1 (06/01/22) Fulfills quantitative criteria for viable neoplasm, interim metabolic progression PERSISTENT: posterior mediastinum 25.1-mm comp to 20.6-mm (06/01/22) 11.2 comp to 10.5 (06/01/22) Fulfills quantitative criteria for viable neoplasm, minimal interim metabolic change, relative metabolic stability NEW: right hemithorax pulmonary parenchyma 9.4-mm (largest) 4.7 (max) Fulfills quantitative criteria for viable neoplasm NEW: pancreatic body 13.4-mm 5.5 Fulfills quantitative criteria for viable neoplasm, further radiologic investigation is recommended TECHNIQUE: Following the intravenous administration of 14.35 mCi of F-18 deoxyglucose via the right wrist, multiplanar image acquisitions of the neck, chest, abdomen and pelvis to level of mid thigh, obtained at one hour post radiopharmaceutical administration contemporaneously interpreted with the current CT of the neck, chest, abdomen and pelvis, to level of mid thigh, dated 04/18/23 via coregistration and FDG PET-CT study dated 06/01/22 reveals: BLOOD GLUCOSE LEVEL:?? 98 mg/dl?HEIGHT:?64 inches?WEIGHT: 140 lbs. FINDINGS: Head/Neck: There is no evidence of abnormal increased glucose metabolism in the pharyngeal mucosal space, parapharyngeal space, bilateral-lateral and anterior neck, hypopharynx and distribution of the laryngeal structures. The visualized portion of the cerebral cortical-subcortical structures demonstrate symmetric and preserved glucose metabolism. CHEST: Facilitated radiopharmaceutical concentration is redefined in the right lower posterior lung zone, right lower lobe. The current calculated maximal standard uptake value is 9.0, compared to 6.3. The maximal axial diameter of the corresponding parenchymal density is 16.1-mm, compared to 13.4-mm. Redefined increased radiopharmaceutical concentration is noted in several locations with the anterior mediastinum. The current calculated maximal standard uptake value is 14.9, compared to 11.1. The maximal axial diameter of the largest metabolic, morphologic abnormality is 17.3-mm, compared to 16.3-mm. Enhanced FDG uptake is redemonstrated in the posterior mediastinum generating a calculated maximal standard uptake value of 11.2, compared to 10.5. The maximal axial diameter of the metabolic, morphologic abnormality is currently 25.1-mm, compared to 20.6-mm (corrected) defined on the prior examination. Newly identified increased radiopharmaceutical concentration is manifest in several locations within the right hemithorax pulmonary parenchyma with a calculated maximal standard uptake value of 4.7. The maximal axial diameter of the largest, most conspicuous parenchymal density is 9.4-mm. Diffuse emphysematous changes, bleb formation is noted in the bilateral hemithorax pulmonary parenchyma. Previously defined morphologic-anatomic changes noted on review of CT of the chest dated 06/01/22, are essentially unchanged on the current examination. Abdomen/Pelvis: There appears to be scintigraphic evidence of increased radiopharmaceutical concentration within the pancreatic body. The calculated maximal standard uptake value is 5.5. The maximal axial diameter of the corresponding metabolic abnormality is 13.4-mm. Normal physiologic distribution of the radiopharmaceutical is apparent in the hepatic (3.2/2.8) and splenic parenchyma, both renal units, bladder and visualized intestinal tract. Review of CT of the abdomen and pelvis dated 06/01/22 demonstrates no significant interval change. Skeletal: Degenerative changes are noted in the cervical, thoracic and lumbar spine without evidence of increased radiopharmaceutical concentration. PET/PET/CT Tumor Base -Thigh Init IMPRESSION: 1. ABNORMAL EXAMINATION INDICATIVE OF MALIGNANT VIABLE NEOPLASM. 2. Increased radiopharmaceutical concentration redefined in the right hemithorax pulmonary parenchyma, right lower lobe fulfills quantitative criteria for viable neoplasm. 3. Enhanced tracer uptake noted in both the anterior and posterior mediastinum fulfill quantitative criteria for malignant transformation. (Khurram et al, Journal of Clinical Oncology 16:2142, 1998). 4. Newly identified foci of increased radiopharmaceutical concentration in several locations within the right hemithorax pulmonary parenchyma fulfill quantitative criteria for malignant transformation. (Joy et al, Annals of Internal Medicine, 138:724, 2003). 5. The increase in radiopharmaceutical concentration manifest in the pancreatic body may be further investigated with magnetic resonance imaging and/or CT of the abdomen and pelvis with pancreatic protocol for further evaluation. 6. Overall, compared to the prior FDG PET study dated 06/01/22, there is interim metabolic progression of defined viable neoplastic disease within the right lower lung and anterior mediastinum, the right hemithorax pulmonary parenchyma and additional expressed hypermetabolic foci, as well as pancreatic body. Relative metabolic stability is noted in the posterior mediastinum as defined above. Electronic Signature Tanvir Melgar D.O. Accurate Quantification of SUVs for this report are calculated using the exclusive [employer], (U.S. Patent No. [id number] [phone] patent [phone] [id number] [phone] [phone] ). Standardization and correction of the FDG SUV metric exclusively available with [employer] intellectual property, allow for vendor non-specific objective quantitative sequential FDG PET-CT comparison and otherwise unobtainable optimization of the sensitivity and specificity of the examination. [email or web address] Electronically Signed: Tanvir Melgar DO at 22:21 EDT ,
== END | disposition home or self-care (01) ==
LOC: ONC 09:51
PROVIDERS: PCP Internal Medicine; Referring Provider Nurse Practitioner Acute Care; Visit Provider Nurse Practitioner Acute Care
DX: R91.1 Solitary pulmonary nodule (principal)
CPT/HCPCS: 78815; A9552

== ENCOUNTER 2024-06-24 14:24 | Emergency (ER) | payer MEDICARE, MEDICAID, SELFPAY ==
[2024-06-24 14:24] VITALS: BP 106/59; PULSE 96; RESP 16; TEMP 36.7; O2SAT 96
--- NOTE | 2024-06-24 15:28 | EDS_ITS ---
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 Patient started off mild, and then became more severe. Pay states it does go down her right leg. Worse with movement. She denies any fever chills nausea vomiting. Denies any difficulty urinating, denies any bowel or bladder incontinence. Patient states he does have history of kidney stones is unsure if this is the cause. PFSH <CHELA Villagran - Last Filed: 06/24/24 18:14> [facility] Medical History (Updated 06/24/24 @ 18:11 by CHELA Villagran) Pneumothorax Bronchitis History of emphysema Trace tricuspid regurgitation by prior echocardiogram Trace mitral regurgitation by prior echocardiogram Recurrent spontaneous pneumothorax Nocturnal hypoxemia Mild pulmonary hypertension LGSIL on Pap smear of cervix Leg edema Insomnia History of tobacco abuse History of kidney stones History of breast cancer History of pancreatic cancer COPD (chronic obstructive pulmonary disease) Home Medications ?Medication ?Instructions ?Recorded ?Last Taken ?Type gabapentin 300 mg capsule 300 mg PO TID 12/24/19 Unknown History inhalational spacing device #1 ea 12/24/19 Unknown Rx (BreatheRite Valved MDI Spacer) rimegepant 75 mg disintegrating 75 mg PO Q OTHER DAY 01/03/23 Unknown History tablet (Nurtec ODT) ergocalciferol (vitamin D2) 1,250 50,000 unit PO QWEEK 06/12/23 Unknown History mcg (50,000 unit) capsule fluticasone fur. 200 mcg-umeclid 1 inh inhalation DAILY #60 ea 12/19/23 Unknown Rx 62.5 mcg-vilant 25 mcg inhalat.powder (Trelegy Ellipta) albuterol sulfate 90 mcg/actuation 2 puff inhalation Q4H PRN 02/22/24 Unknown Rx aerosol inhaler (Ventolin HFA) shortness of breath or wheezing #8.5 grams albuterol sulfate 2.5 mg/3 mL 2.5 mg (3 mL) inhalation Q4H PRN 03/11/24 Unknown Rx (0.083 %) solution for nebulization shortness of breath or wheezing #180 mL cyclobenzaprine 10 mg tablet 10 mg PO TID PRN Muscle Spasm #15 06/24/24 Unknown Rx TABLETS naproxen 500 mg tablet (Naprosyn) 500 mg PO BID PRN pain #20 tabs 06/24/24 Unknown Rx oxycodone-acetaminophen 5 mg-325 1 tab PO Q8H PRN pain 3 days #7 06/24/24 Unknown Rx mg tablet (Percocet) tabs sulfamethoxazole 800 1 tab PO Q12H 7 days #14 tabs 06/24/24 Unknown Rx mg-trimethoprim 160 mg tablet (Bactrim DS) Allergy/AdvReac Type Severity Reaction Status Date / Time No Known Allergies Allergy Verified 06/24/24 14:24 Family History Uncle No problems noted. Father Heart disease Myocardial infarction FH: mental illness Mother COPD (chronic obstructive pulmonary disease) Grandmother Pancreatic cancer Grandfather Emphysema lung Surgical History History of cholecystectomy H/O LEEP H/O lumpectomy History of hand surgery Hx of tubal ligation Social History Smoking Status: Former smoker Tobacco: How many years used: 19 ROS <Pillo Hicks NP-Soheila - Last Filed: 06/24/24 18:14> ROS ED ROS Narrative Constitutional: Negative for fever, chills, weight loss, weakness Eyes: Negative for vision loss, vision change, double vision ENT: Negative for any sore throat, ear pain, congestion Cardiovascular: Negative for any chest pain, tightness, palpitations Respiratory: Negative for any cough, sputum production, hemoptysis, dyspnea, dyspnea on exertion, orthopnea Gastrointestinal: Negative for any abdominal pain, nausea, vomiting, diarrhea, constipation, blood in stool, blood in vomit : Negative for any urinary frequency, dysuria, retention, blood in urine Muscle skeletal: Negative for any neck pain. Positive right sided back pain, right-sided flank pain Neurological: Negative for any headache, syncope, dizziness Skin: Negative for any rashes, itching, abrasions, lacerations Psychiatric: Negative for any depression, anxiety, stress, suicidal ideation, homicidal ideation Hematologic: Negative for any excessive bruising, easy bleeding EXAM <CHELA Villagran - Last Filed: 06/24/24 18:14> Physical Exam Narrative Exam Narrative: Vital signs reviewed. On my evaluation, the patient was standing up, patient states the pain to her right lower back was severe going down her right leg. Worse with sitting. HEET: Head normocephalic atraumatic, TMs clear bilaterally. Posterior pharynx is clear, moist mucous membranes. Nares clear bilaterally. Neck: Supple with no lymphadenopathy or tenderness. No signs of meningismus. Cardiac: Regular rate and rhythm no murmurs gallops or rubs, equal peripheral pulses bilaterally. Respiratory: Lungs clear to auscultation bilaterally. No chest tenderness. Abdomen: Soft, nontender, nondistended. No abdominal bruit or pulsatile masses. No hepatosplenomegaly Extremities: No peripheral edema, no signs of gross trauma or deformity. Active full range of motion of all extremities. Neuro: Cranial nerves II through XII intact, no focal neurological deficits. Skin: Clean dry and intact with no rash, purpura, petechiae, vesicles or pustu les. Backs/flank: No CVA tenderness, no midline spinal tenderness, no deformity. Psych: Normal mood and affect. No SI, HI or acute psychosis. Const Vital Signs: 06/24/24 14:24 06/24/24 16:24 06/24/24 17:43 Temperature 98.1 F 98.1 F Temperature Source Oral Pulse Rate 96 85 75 Respiratory Rate 16 18 18 Blood Pressure 106/59 L 121/76 H Blood Pressure Mean 74 91 Pulse Ox 96 99 97 Oxygen Delivery Method Room Air Nasal Cannula Oxygen Flow Rate (L/min) 2 06/24/24 17:54 Temperature 98.1 F Temperature Source Oral Pulse Rate 77 Respiratory Rate 17 Blood Pressure Blood Pressure Mean Pulse Ox 97 Oxygen Delivery Method Room Air Oxygen Flow Rate (L/min) <Dr. Kurt Dawson DO - Last Filed: 06/24/24 15:56> Physical Exam Const Vital Signs: 06/24/24 14:24 06/24/24 16:24 06/24/24 17:43 Temperature 98.1 F 98.1 F Temperature Source Oral Pulse Rate 96 85 75 Respiratory Rate 16 18 18 Blood Pressure 106/59 L 121/76 H Blood Pressure Mean 74 91 Pulse Ox 96 99 97 Oxygen Delivery Method Room Air Nasal Cannula Oxygen Flow Rate (L/min) 2 06/24/24 17:54 Temperature 98.1 F Temperature Source Oral Pulse Rate 77 Respiratory Rate 17 Blood Pressure Blood Pressure Mean Pulse Ox 97 Oxygen Delivery Method Room Air Oxygen Flow Rate (L/min) GINI <Pillo BeltranCHELA mckeon - Last Filed: 06/24/24 18:14> [facility] Lab Data Labs: Laboratory Results - last 24 hr 06/24/24 06/24/24 15:39 16:53 WBC 8.6 RBC 4.77 Hgb 14.8 Hct 44.0 MCV 92.2 MCH 31.0 MCHC 33.6 RDW Std Deviation 41.6 RDW Coeff of Luke 12.3 Plt Count 304 MPV 9.0 Immature Gran % (Auto) 0.300 Neut % (Auto) 60.1 Lymph % (Auto) 32.3 Reeves % (Auto) 5.8 Eos % (Auto) 1.0 Baso % (Auto) 0.5 Absolute Neuts (auto) 5.2 Absolute Lymphs (auto) 2.78 Nucleated RBC % 0 Sodium 139 Potassium 4.1 Chloride 104 Carbon Dioxide 30.0 Anion Gap 5 BUN 10 Creatinine 0.56 Est GFR (MDRD) Af Amer 146 Est GFR (MDRD) Non-Af 121 BUN/Creatinine Ratio 18.0 Glucose 93 Calcium 10.2 H Urine Color Yellow Urine Clarity Cloudy Urine pH 7.0 Ur Specific [place] 1.010 Urine Protein 30 H Urine Glucose (UA) Normal Urine Ketones 15 H Urine Occult Blood 25 H Urine Nitrite Positive H Urine Bilirubin Negative Urine Urobilinogen Normal Ur Leukocyte Esterase 500 H Urine RBC 0-5 SEEN Urine WBC 50-100 SEEN Ur Squamous Epith Cells 10-25 SEEN Ur Renal Epithelial Cell 0-5 SEEN Urine Bacteria 4+ Urine Mucus 0 SEEN Radiography Diagnostic Testing: Clinical Impression(s) from Imaging Studies Abdomen/Pelvis CT 06/24/24 16:01 IMPRESSION: Nonobstructing right renal calculus. Air-fluid level within the bladder most likely due to recent catheterization although infection not entirely excluded Incidental finding of focal bladder wall calcification along the posterior wall of indeterminate etiology. Possibility of bladder wall mass cannot be entirely excluded Electronically Signed: Indra Dias MD at 16:30 EST , Treatment and Re-Evaluation :: Differential diagnosis includes however is not limited to: Lumbar strain, sciatica, obstructing uropathy, muscle strain, pyelonephritis Patient appears generally well, vital signs are stable, patient is nontoxic- appearing. Presenting to the emerged part with complaints of right-sided back pain, flank pain. Patient will receive a CT scan of the abdomen pelvis to rule out any obstructing uropathy, patient received morphine, Toradol, Zofran. Patient will need to be reevaluated, urinalysis was basic laboratory values will be ordered. All radiologic examinations were read, reviewed by the emergency department attending. From these reads, a plan of care will be put in place. Patient's CBC was unremarkable, chemistries was unremarkable. Patient's CT scan of the abdomen pelvis shows nonobstructing right renal calculus. Air-fluid level within the bladder most likely due to recent catheterization although infection not entirely excluded. There is a incidental finding of focal bladder wall calcification along the posterior wall of indeterminate etiology. Possibility of bladder wall mass cannot be entirely excluded. Currently waiting for the urinalysis. Patient's urinalysis does show infection, urine culture was sent, this showed 4+ bacteria 10-25 squamous cells, 50-100 white blood cells, 5 leukocytes, positive nitrites. At this time, there is no evidence of any leukocytosis, kidney function was normal, CT scan shows no evidence of obstruction or pyelonephritis. At this time, believe the patient has 2 separate issues, patient has a muscle skeletal strain as well as a UTI that is a cystitis. Patient will continue to follow-up outpatient. I will provide the patient with Bactrim twice a day for 7 days, patient received a short course of pain medicine as well as anti- inflammatories and muscle relaxers. Instructed return for any worsening symptoms, all questions answered, stable for discharge. ED attending note: I evaluated the patient in conjunction with the BETO. I agree with his/her statements and above findings. I have personally performed a face to face assessment of the patient and have reviewed the BETO Note. I performed a substantive portion of the visit including all aspects of the following. I personally saw the patient performed chart review, physical exam, reviewed labs, imaging (if obtained), and formulated a treatment and management plan. This note was generated with Tello dictation software. It may contain incorrect words, spelling, and punctuation that were not noted in review of the chart prior to signing. <Dr. Kurt Dawson, DO - Last Filed: 06/24/24 15:56> [facility] Lab Data Labs: Laboratory Results - last 24 hr 06/24/24 06/24/24 15:39 16:53 WBC 8.6 RBC 4.77 Hgb 14.8 Hct 44.0 MCV 92.2 MCH 31.0 MCHC 33.6 RDW Std Deviation 41.6 RDW Coeff of Luke 12.3 Plt Count 304 MPV 9.0 Immature Gran % (Auto) 0.300 Neut % (Auto) 60.1 Lymph % (Auto) 32.3 Reeves % (Auto) 5.8 Eos % (Auto) 1.0 Baso % (Auto) 0.5 Absolute Neuts (auto) 5.2 Absolute Lymphs (auto) 2.78 Nucleated RBC % 0 Sodium 139 Potassium 4.1 Chloride 104 Carbon Dioxide 30.0 Anion Gap 5 BUN 10 Creatinine 0.56 Est GFR (MDRD) Af Amer 146 Est GFR (MDRD) Non-Af 121 BUN/Creatinine Ratio 18.0 Glucose 93 Calcium 10.2 H Urine Color Yellow Urine Clarity Cloudy Urine pH 7.0 Ur Specific [place] 1.010 Urine Protein 30 H Urine Glucose (UA) Normal Urine Ketones 15 H Urine Occult Blood 25 H Urine Nitrite Positive H Urine Bilirubin Negative Urine Urobilinogen Normal Ur Leukocyte Esterase 500 H Urine RBC 0-5 SEEN Urine WBC 50-100 SEEN Ur Squamous Epith Cells 10-25 SEEN Ur Renal Epithelial Cell 0-5 SEEN Urine Bacteria 4+ Urine Mucus 0 SEEN Radiography Diagnostic Testing: Clinical Impression(s) from Imaging Studies Abdomen/Pelvis CT 06/24/24 16:01 IMPRESSION: Nonobstructing right renal calculus. Air-fluid level within the bladder most likely due to recent catheterization although infection not entirely excluded Incidental finding of focal bladder wall calcification along the posterior wall of indeterminate etiology. Possibility of bladder wall mass cannot be entirely excluded Electronically Signed: Indra Dias MD at 16:30 EST , Treatment and Re-Evaluation :: Differential diagnosis includes however is not limited to: Lumbar strain, sciatica, obstructing uropathy, muscle strain, pyelonephritis Patient appears generally well, vital signs are stable, patient is nontoxic- appearing. Presenting to the emerged part with complaints of right-sided back pain, flank pain. Patient will receive a CT scan of the abdomen pelvis to rule out any obstructing uropathy, patient received morphine, Toradol, Zofran. Patient will need to be reevaluated, urinalysis was basic laboratory values will be ordered. All radiologic examinations were read, reviewed by the emergency department attending. From these reads, a plan of care will be put in place. ED attending note: I evaluated the patient in conjunction with the BETO. I agree with his/her statements and above findings. I have personally performed a face to face assessment of the patient and have reviewed the BETO Note. I performed a substantive portion of the visit including all aspects of the following. I personally saw the patient performed chart review, physical exam, reviewed labs, imaging (if obtained), and formulated a treatment and management plan. This note was generated with Tello dictation software. It may contain incorrect words, spelling, and punctuation that were not noted in review of the chart prior to signing. Discharge Plan Triage Chief Complaint: Flank Pain ED Midlevel Provider: Pillo Hicks ED Provider: Kurt Dawson Dx/Rx/DC Orders Clinical Impression: Acute lumbar myofascial strain, UTI (urinary tract infection) Instructions: Treating?Strains and Sprains, Urinary Tract Infections in Women, Understanding Lumbosacral Strain Prescriptions: New sulfamethoxazole-trimethoprim [Bactrim DS] 800-160 mg tablet 1 tab PO Q12H 7 Days Qty: 14 0RF oxycodone-acetaminophen [Percocet] 5-325 mg tablet 1 tab PO Q8H PRN (Reason: pain) 3 Days Qty: 7 0RF cyclobenzaprine 10 mg tablet 10 mg PO TID PRN (Reason: Muscle Spasm) Qty: 15 0RF naproxen [Naprosyn] 500 mg tablet 500 mg PO BID PRN (Reason: pain) Qty: 20 0RF No Action gabapentin 300 mg capsule 300 mg PO TID (DME) BreatheRite Valved MDI Spacer Spacer See Rx Instructions .ROUTE .MEDSUPPLY Qty: 1 0RF Rx Instructions: As directed Nurtec ODT 75 mg tablet,disintegrating 75 mg PO Q OTHER DAY Rx Instructions: as a single dose ergocalciferol (vitamin D2) 1,250 mcg (50,000 unit) capsule 50,000 unit PO QWEEK Patient Comments: TAKE 1 CAPSULE BY MOUTH ONCE A WEEK albuterol sulfate [Ventolin HFA] 90 mcg/actuation HFA aerosol inhaler 2 puff inhalation Q4H PRN (Reason: shortness of breath or wheezing) Qty: 8.5 11RF Trelegy Ellipta 200-62.5-25 mcg blister with device 1 inh inhalation DAILY Qty: 60 11RF albuterol sulfate 2.5 mg /3 mL (0.083 %) solution for nebulization 2.5 mg inhalation Q4H PRN (Reason: shortness of breath or wheezing) Qty: 180 6RF Primary Care Provider: Haylie Ayon Referrals: Haylie Ayon, DO [Primary Care Provider] - Activity Restrictions/Additional Instructions: All of the medications are as needed. The Bactrim is the only 1 that I would like you to take until the container is empty. Print Language: Turkmen Disposition Disposition: Home, Self Care
[2024-06-24] MEDS: Ondansetron ODT 4 MG Tablet PO (15:35)
[2024-06-24] MEDS: Ketorolac 30 MG/ML Syringe IV (15:35)
[2024-06-24] MEDS: Morphine 4 MG/ML Syringe IV ×2 (15:36→17:32)
[2024-06-24 15:46] LABS: Absolute Lymphocyte Count 2.78 X10^3/uL (0.83-4.51); Absolute Neutrophil Count 5.2 X10^3/uL (2.0-7.7); Basophil# 0.04 X10^3/uL; Basophil% 0.5 % (0-1); Eosinophil# 0.09 X10^3/uL; Hemoglobin 14.8 g/dL (12.0-15.0); Lymphocyte # 2.78 X10^3/ul (0.83-4.51); Lymphocyte % 32.3 % (19-41); Mean Corp Hgb Conc 33.6 g/dL (32-36); Mean Corpuscular Volume 92.2 fL (81-99); Monocyte% 5.8 % (0-10); NRBC Flagged by Analyzer 0 % (0-5); Neutrophil # 5.17 X10^3/uL (2.7-7.7); Neutrophil % 60.1 % (47-70); Platelet Count 304 K/mm3 (150-450); RBC Distribution Width CV 12.3 % (11.6-14.6); RBC Distribution Width SD 41.6 fl (35.1-43.9); Red Blood Count 4.77 M/mm3 (4.2-5.4); White Blood Count 8.6 K/mm3 (4.4-11.0)
--- NOTE | 2024-06-24 16:01 | CT_ITS ---
STUDY: CT ABDOMEN AND PELVIS WITHOUT CONTRAST REASON FOR EXAM: Female, 53 years old. Kidney Stone RADIATION DOSAGE (If Supplied By Facility): CTDIvol = ( 6.32 ) mGy, DLP = ( 304.65 ) mGycm TECHNIQUE: Transaxial images were obtained from the dome of the diaphragm to the symphysis pubis without oral contrast, and without intravenous contrast. Sagittal and coronal images were reconstructed. Individualized dose optimization techniques were used for this CT. COMPARISON: None. FINDINGS: There are emphysematous changes are seen in the lower lobes.. Small calcified nodule in the right lower lobe with pleural thickening. Calcified granuloma in the left lower lobe The visualized portions of the heart are within normal limits. Normal liver. Gallbladder not visualized status post cholecystectomy. Normal spleen. Normal pancreas. Normal bilateral adrenal glands. Tiny nonobstructing right renal calculus. No evidence for obstruction or mass.. Normal left kidney. Normal visualized stomach. Normal small intestine. Scattered diverticular changes of the colon without evidence for acute diverticulitis The appendix is visualized and appears normal. Mild atherosclerotic changes of the aorta without evidence for aneurysm. Normal inferior vena cava. Normal retroperitoneum. Bladder is distended and contains air-fluid level possibly due to recent Mtz insertion however clinical correlation is recommended in this regard. There also appears to be very subtle hyperattenuation within the left posterior wall of the bladder possibly representing mild calcification of uncertain clinical significance. Normal abdominal wall. Normal osseous structures. CT/Abdomen/Pelvis without Cont IMPRESSION: Nonobstructing right renal calculus. Air-fluid level within the bladder most likely due to recent catheterization although infection not entirely excluded Incidental finding of focal bladder wall calcification along the posterior wall of indeterminate etiology. Possibility of bladder wall mass cannot be entirely excluded Electronically Signed: Indra Dias MD at 16:30 EST ,
[2024-06-24 16:07] LABS: Anion Gap 5 (5-15); BUN 10 mg/dL (7-18); Calcium,Total 10.2 mg/dL (8.5-10.1); Chloride 104 mmol/L (98-107); Creatinine, Serum 0.56 mg/dL (0.55-1.02); EST Glomerular Filtration Rate 121 mL/min (>60); Est Glom Filt Rate - Afr Amer 146 mL/min (>60); Glucose 93 mg/dL (74-106); Potassium 4.1 mmol/L (3.5-5.1); Sodium Level 139 mmol/L (136-145)
[2024-06-24 16:21] VITALS: BMI 25.1
[2024-06-24 16:24] VITALS: PULSE 85; RESP 18; O2SAT 99
[2024-06-24 17:02] LABS: Mucous, Urine 0 SEEN /hpf (<or=2+)
[2024-06-24 17:04] LABS: Color, Urine Yellow (Yellow); Glucose, Dipstick Normal (Normal); Ketone-Dipstick 15 mg/dl (Negative); Leukocyte Esterase-Dipstick 500 /ul (Negative); Nitrite-Dipstick Positive (Negative); Occult Blood-Urine 25 /ul (Negative); Protein-Dipstick 30 mg/dl (Negative); Urine Bilirubin Dipstick Negative (Negative); Urine Clarity Cloudy (Clear); Urine Urobilinogen Normal (Normal)
[2024-06-24 17:43] VITALS: BP 121/76; PULSE 75; RESP 18; TEMP 36.7; O2SAT 97
[2024-06-24] MEDS: Ceftriaxone 1 GM/50 ML BAG IV (17:50)
[2024-06-24 17:53] LABS: Bacteria 4+ /hpf (None Seen); Renal Epithelial Cells 0-5 SEEN /hpf (0-5)
[2024-06-24 17:54] VITALS: PULSE 77; RESP 17; TEMP 36.7; O2SAT 97
[2024-06-24 17:54] LABS: White Blood Cells 50-100 SEEN /hpf (0-5)
[2024-06-24 17:56] LABS: Red Blood Cells-Urine 0-5 SEEN /hpf (0-5); Squamous Epithelial Cells - UA 10-25 SEEN /hpf (5-10)
== END 2024-06-24 18:27 | disposition home or self-care (01) ==
PROVIDERS: Emergency Provider Emergency Medicine; PCP Internal Medicine; Visit Provider Emergency Medicine
DX: S39.012A Strain of muscle, fascia and tendon of lower back, initial encounter (principal); J43.9 Emphysema, unspecified; N39.0 Urinary tract infection, site not specified; Z87.891 Personal history of nicotine dependence; Z99.81 Dependence on supplemental oxygen; X58.XXXA Exposure to other specified factors, initial encounter
CPT/HCPCS: 74176; 80048; 81001; 85025; 87077; 87086; 87088; 87186; 96365; 96375; 96376; 99283; J7040; J7050; A4216